=== PATIENT | female | born 1960 | race Caucasian/White ===

== ENCOUNTER 2018-02-09 07:13 | Emergency (ER) | payer OTHER ==
[~2018-02-09] VITALS: Ht 147.3 cm; Wt 71.0 kg
[~2018-02-09 07:13] MED LIST: ESTR1TAB5 PO
[2018-02-09] MEDS ORDERED: ONDANSETRON 2MG/ML, 2ML IVPush ONE (08:00)
[2018-02-09] MEDS ORDERED: SODIUM CHLORIDE FLUSH 10ML SYR IVF ONE (08:00)
[2018-02-09] MEDS ORDERED: ONDANSETRON 2MG/ML, 2ML ONE (08:11)
[2018-02-09 08:12] LABS: BASOPHILS # (AUTO) 0.02 x10^3/uL (0-0.1); BASOPHILS % (AUTO) 0 % (0-1); EOSINOPHILS # (AUTO) 0.09 x10^3/uL (0-0.4); EOSINOPHILS % (AUTO) 1 % (1-7); LYMPHOCYTES # (AUTO) 0.92 x10^3/uL (1-3.4); LYMPHOCYTES % (AUTO) 13 % (22-44); MD NO; MEAN CORPUSCULAR HEMOGLOBIN 30.4 pg (27.0-34.8); MEAN CORPUSCULAR HGB CONC 33.5 g/dL (32.4-35.8); MEAN CORPUSCULAR VOLUME 90.9 fL (80-100); MEAN PLATELET VOLUME 8.8 fL (7.4-10.4); MONOCYTES # (AUTO) 0.61 x10^3/uL (0.2-0.8); MONOCYTES % (AUTO) 9 % (2-9); NEUTROPHILS % (AUTO) 77 % (42-75); PLATELET COUNT 252 x10^3/uL (130-400); RED BLOOD COUNT 4.72 x10^6/uL (3.82-5.3); RED CELL DISTRIBUTION WIDTH 12.4 % (9.6-15.2)
[2018-02-09] MEDS ORDERED: MORPHINE SULFATE 4 MG/ML, 1ML ONE ×2 (08:12→10:47)
[2018-02-09] MEDS: MORPHINE SULFATE 4 MG/ML, 1ML IVPush PRN ×2 (08:22→10:49)
[2018-02-09 08:24] LABS: ALANINE AMINOTRANSFERASE 28 U/L (12-78); ALBUMIN 3.5 g/dL (3.4-5.0); ANION GAP 8 mmol/L (5-15); CALCIUM 8.5 mg/dL (8.5-10.1); CHLORIDE 110 mmol/L (98-107)
[2018-02-09 08:26] LABS: ALKALINE PHOSPHATASE 79 U/L (45-117); BILIRUBIN,TOTAL 0.6 mg/dL (0.2-1.0); TOTAL PROTEIN 6.8 g/dL (6.4-8.2)
--- NOTE | 2018-02-09 08:39 | NUR ---
MEDS GIVEN PER ORDERS PT RESTING WELL
[2018-02-09] MEDS ORDERED: OMNIPAQUE 350 MG/ML, 100ML BOTTLE ONE (09:33)
[2018-02-09] MEDS ORDERED: metroNIDAZOLE 500 MG TABLET PO ONE (10:30)
[2018-02-09] MEDS ORDERED: CIPROFLOXACIN 500 MG TABLET PO ONE (10:30)
[2018-02-09] MEDS ORDERED: metroNIDAZOLE 500 MG TABLET ONE (10:41)
[2018-02-09] MEDS ORDERED: CIPROFLOXACIN 500 MG TABLET ONE (10:41)
[2018-02-09 11:30] VITALS: BP 118/70
== END 2018-02-09 11:32 | disposition home or self-care (01) ==
LOC: ED 09:06
DX: K57.32 Diverticulitis of large intestine without perforation or abscess without bleeding (principal); S20.02XA Contusion of left breast, initial encounter; Z88.0 Allergy status to penicillin; Z88.8 Allergy status to other drugs, medicaments and biological substances; W01.0XXA Fall on same level from slipping, tripping and stumbling without subsequent striking against object, initial encounter; Y93.89 Activity, other specified; Y92.89 Other specified places as the place of occurrence of the external cause; Y99.8 Other external cause status
CPT/HCPCS: 36415; 71046; 74177; 80053; 83690; 85025; 96374; 96375; 96376; 99284; J2405; Q9967

== ENCOUNTER 2019-09-25 17:11 | Emergency (ER) | payer BC ==
[~2019-09-25] VITALS: Ht 147.3 cm; Wt 70.0 kg
--- NOTE | 2019-09-25 18:02 | NUR ---
CONTACT WITH PT. 59 YR OLD FEMALE HERE WITH C/O "I WAS AT WORK, STARTED SHAKING REALLY BAD, I COULDNT WRITE, TROUBLE BREATHING, PAIN IN MY LEFT SHOULDER AND IN CHEST . IT ALTERNATED. MY CO-WORKER NOTICED THAT I WAS SWEATING, I GOT LIGHTHEADED. I LAID DOWN FOR ABOUT 4 HOURS. I WENT TO THE CLINIC. THE CLINIC SENT ME HERE. I STILL CANT CATCH MY BREATH"
[2019-09-25 18:05] VITALS: BP 115/77
[2019-09-25 18:13] LABS: ANION GAP 6 mmol/L (5-15); CALCIUM 8.5 mg/dL (8.5-10.1); CHLORIDE 112 mmol/L (98-107); CREATININE 0.76 mg/dL (0.55-1.02)
[2019-09-25 18:17] LABS: TROPONIN I < 0.015 ng/mL (0.000-0.045)
--- NOTE | 2019-09-25 18:51 | NUR ---
NO SIG CHANGE IN PT CONDITION NOTED. NO IV TO DC. REVIEWED DC INSTRUCTIONS WITH PT. UNDERSTANDING VERBALIZED. PT LEFT AMB, GAIT STEADY.
== END 2019-09-25 18:53 | disposition home or self-care (01) ==
LOC: ED 18:40
DX: F41.1 Generalized anxiety disorder (principal); R07.89 Other chest pain; R06.02 Shortness of breath; F17.200 Nicotine dependence, unspecified, uncomplicated; Z90.89 Acquired absence of other organs
CPT/HCPCS: 36415; 71045; 80048; 84484; 93005; 99285